=== PATIENT | male | born 1985 | race African-American/Black ===

== ENCOUNTER 2024-10-15 19:59 | Emergency (ER) | payer OTHER ==
[~2024-10-15] VITALS: Ht 182.9 cm; Wt 75.0 kg
[2024-10-15 21:49] VITALS: BP 119/68; PULSE 71; RESP 18; TEMP 97.3; O2SAT 100
== END 2024-10-15 21:56 ==
LOC: EMS 19:59
DX: R07.89 Other chest pain (principal); Z98.890 Other specified postprocedural states
CPT/HCPCS: 71046; 99283